=== PATIENT | female | born 1980 | race Caucasian/White ===

== ENCOUNTER 2018-02-11 16:08 | Emergency (ER) | payer OTHER ==
[~2018-02-11] VITALS: Ht 162.6 cm; Wt 110.8 kg
[2018-02-11 16:12] VITALS: Ht 162.6 cm; Wt 110.8 kg
[2018-02-11 17:38] VITALS: BP 156/65
== END 2018-02-11 17:38 | disposition home or self-care (01) ==
LOC: ED 16:08
DX: S90.31XA Contusion of right foot, initial encounter (principal); R03.0 Elevated blood-pressure reading, without diagnosis of hypertension; Z91.013 Allergy to seafood; X58.XXXA Exposure to other specified factors, initial encounter; Y93.89 Activity, other specified; Y92.89 Other specified places as the place of occurrence of the external cause; Y99.8 Other external cause status
CPT/HCPCS: Q0092

== ENCOUNTER 2018-03-13 10:21 | Emergency (ER) | payer OTHER ==
[~2018-03-13] VITALS: Ht 162.6 cm; Wt 110.2 kg
[2018-03-13 10:31] VITALS: BP 133/91; Ht 162.6 cm; Wt 110.2 kg
== END 2018-03-13 12:30 | disposition home or self-care (01) ==
LOC: ED 10:21
DX: J45.901 Unspecified asthma with (acute) exacerbation (principal); Z91.013 Allergy to seafood
CPT/HCPCS: J7512; J7613; J7644

== ENCOUNTER 2018-10-16 18:56 | Emergency (ER) | payer OTHER ==
[~2018-10-16] VITALS: Ht 162.6 cm; Wt 110.2 kg
[2018-10-16 19:06] VITALS: Ht 162.6 cm; Wt 110.2 kg
[2018-10-16 21:22] LABS: BASOPHIL % 0.5 % (0-2)
[2018-10-16 21:23] LABS: PLATELET COUNT 472 x10^3mcL (130-400); RED CELL DISTRIBUTION WIDTH 17.3 % (11.5-14.5)
[2018-10-16 21:39] LABS: CALCIUM 8.8 mg/dL (8.5-10.1); CARBON DIOXIDE 25.7 mmol/L (21-32); CHLORIDE SERUM 102 mmol/L (98-107); CREATININE SERUM 0.6 mg/dL (0.6-1.0); GFR1 > 60 mL/min; GLUCOSE SERUM 236 mg/dL (74-106); POTASSIUM SERUM 3.7 mmol/L (3.5-5.1); SODIUM SERUM 137 mmol/L (136-145)
[2018-10-16 21:46] LABS: ALKALINE PHOSPHATASE 134 U/L (46-116); ALT/SGPT 24 U/L (14-59); AST/SGOT 11 U/L (15-37); BILIRUBIN TOTAL 0.1 mg/dL (0.20-1.00); LIPASE 73 IU/L (73-393); TOTAL PROTEIN, SERUM 7.6 g/dL (6.4-8.2)
[2018-10-16 21:47] LABS: ALBUMIN 3.3 g/dL (3.4-5.0)
[2018-10-17 00:18] VITALS: BP 138/80
== END 2018-10-17 00:18 | disposition home or self-care (01) ==
LOC: ED 18:56
PROVIDERS: Emergency Medicine
DX: E11.65 Type 2 diabetes mellitus with hyperglycemia (principal); K62.5 Hemorrhage of anus and rectum; R10.13 Epigastric pain; J45.909 Unspecified asthma, uncomplicated; Z90.49 Acquired absence of other specified parts of digestive tract; Z98.890 Other specified postprocedural states; Z91.013 Allergy to seafood
CPT/HCPCS: 82962

== ENCOUNTER 2019-04-01 13:53 | Emergency (ER) | payer OTHER ==
[~2019-04-01] VITALS: Ht 162.6 cm; Wt 106.6 kg
[2019-04-01 13:55] VITALS: Ht 162.6 cm; Wt 106.6 kg
[2019-04-01 15:24] VITALS: BP 127/85
== END 2019-04-01 15:24 | disposition home or self-care (01) ==
LOC: ED 13:53
DX: K57.92 Diverticulitis of intestine, part unspecified, without perforation or abscess without bleeding (principal); R10.10 Upper abdominal pain, unspecified; J45.909 Unspecified asthma, uncomplicated; E11.9 Type 2 diabetes mellitus without complications; Z98.890 Other specified postprocedural states; Z90.49 Acquired absence of other specified parts of digestive tract; Z98.51 Tubal ligation status; Z91.013 Allergy to seafood

== ENCOUNTER 2019-04-10 11:11 | Emergency (ER) | payer OTHER ==
[~2019-04-10] VITALS: Ht 162.6 cm; Wt 104.9 kg
[2019-04-10 11:15] VITALS: Ht 162.6 cm; Wt 104.9 kg
[2019-04-10 11:54] LABS: BASOPHIL % 0.3 % (0-2); PLATELET COUNT 382 x10^3mcL (130-400); RED CELL DISTRIBUTION WIDTH 13.6 % (11.5-14.5)
[2019-04-10 12:18] LABS: ALBUMIN 3.5 g/dL (3.4-5.0); ALKALINE PHOSPHATASE 85 U/L (46-116); ALT/SGPT 24 U/L (14-59); AST/SGOT 10 U/L (15-37); BILIRUBIN TOTAL 0.6 mg/dL (0.20-1.00); CALCIUM 8.8 mg/dL (8.5-10.1); CARBON DIOXIDE 26.9 mmol/L (21-32); CHLORIDE SERUM 104 mmol/L (98-107); CREATININE SERUM 0.6 mg/dL (0.6-1.0); GFR1 > 60 mL/min; LIPASE 74 IU/L (73-393); POTASSIUM SERUM 4.2 mmol/L (3.5-5.1); SODIUM SERUM 138 mmol/L (136-145); TOTAL PROTEIN, SERUM 7.3 g/dL (6.4-8.2)
[2019-04-10 12:24] LABS: GLUCOSE SERUM 137 mg/dL (74-106)
[2019-04-10 14:31] VITALS: BP 134/81
== END 2019-04-10 14:31 | disposition home or self-care (01) ==
LOC: ED 11:11
PROVIDERS: Emergency Medicine
DX: K92.1 Melena (principal); R10.13 Epigastric pain; R10.11 Right upper quadrant pain; J45.909 Unspecified asthma, uncomplicated; E11.9 Type 2 diabetes mellitus without complications; Z91.013 Allergy to seafood; Z98.890 Other specified postprocedural states; Z98.51 Tubal ligation status
CPT/HCPCS: J1885; J2405

== ENCOUNTER 2020-07-21 14:31 | Emergency (ER) | payer OTHER, SELFPAY ==
[~2020-07-21] VITALS: Ht 162.6 cm; Wt 110.2 kg
[2020-07-21 14:34] VITALS: Ht 162.6 cm; Wt 110.2 kg
[2020-07-21 16:15] VITALS: BP 138/67
== END 2020-07-21 16:25 | disposition home or self-care (01) ==
LOC: ED 14:31
DX: B34.9 Viral infection, unspecified (principal); Z20.828 Contact with and (suspected) exposure to other viral communicable diseases
CPT/HCPCS: U0003-CS

== ENCOUNTER 2020-07-23 09:16 | Emergency (ER) | payer OTHER ==
[~2020-07-23] VITALS: Ht 162.6 cm; Wt 106.6 kg
[2020-07-23 09:18] VITALS: Ht 162.6 cm; Wt 106.6 kg
[2020-07-23 12:40] VITALS: BP 149/80
== END 2020-07-23 12:40 | disposition home or self-care (01) ==
LOC: ED 09:16
DX: J01.90 Acute sinusitis, unspecified (principal); J45.909 Unspecified asthma, uncomplicated; E11.9 Type 2 diabetes mellitus without complications; Z98.51 Tubal ligation status
CPT/HCPCS: 87804

== ENCOUNTER 2020-11-22 08:10 | Emergency (ER) | payer OTHER ==
[~2020-11-22] VITALS: Ht 162.6 cm; Wt 106.6 kg
[2020-11-22 08:14] VITALS: Ht 162.6 cm; Wt 106.6 kg
[2020-11-22 10:10] VITALS: BP 116/67
== END 2020-11-22 10:10 | disposition home or self-care (01) ==
LOC: ED 08:10
DX: S93.402A Sprain of unspecified ligament of left ankle, initial encounter (principal); S80.02XA Contusion of left knee, initial encounter; S80.01XA Contusion of right knee, initial encounter; E11.9 Type 2 diabetes mellitus without complications; E66.9 Obesity, unspecified; Z68.41 Body mass index [BMI] 40.0-44.9, adult; Z98.890 Other specified postprocedural states; Z91.013 Allergy to seafood; W01.0XXA Fall on same level from slipping, tripping and stumbling without subsequent striking against object, initial encounter; Y92.89 Other specified places as the place of occurrence of the external cause; Y93.89 Activity, other specified; Y99.8 Other external cause status